=== PATIENT | male | born 1955 | race Caucasian/White ===

== ENCOUNTER 2018-10-18 10:53 | Day surgery (SDC) | payer BC, MEDICARE ==
[~2018-10-18] VITALS: Ht 185.4 cm; Wt 65.8 kg
[2018-10-18] MEDS ORDERED: CEFAZOLIN PMX 1GM/50ML 50 ML ONE (11:23)
[2018-10-18 11:32] VITALS: BP 95/59
[2018-10-18] MEDS ORDERED: SODIUM CHLORIDE 0.9% 1,000 ML IV SCH (11:34)
[2018-10-18] MEDS ORDERED: CEFAZOLIN PMX 1GM/50ML 50 ML IV ONE (12:00)
[2018-10-18] MEDS ORDERED: LIDOCAINE 1%, 20ML ONE (13:24)
[2018-10-18] MEDS ORDERED: NALOXONE 1 MG/ML, 2ML ONE (13:36)
[2018-10-18] MEDS ORDERED: MIDAZOLAM 1 MG/ML, 5ML ONE ×2 (13:36)
[2018-10-18] MEDS ORDERED: FLUMAZENIL 0.1 MG/1 ML, 5ML ONE (13:36)
[2018-10-18] MEDS ORDERED: FENTANYL PF 100 MCG/2ML ONE (13:36)
== END 2018-10-18 15:55 | disposition home or self-care (01) ==
LOC: OUT 10:53
PROVIDERS: ATTEND Specialist
DX: C34.11 Malignant neoplasm of upper lobe, right bronchus or lung (principal); F17.210 Nicotine dependence, cigarettes, uncomplicated; Z72.89 Other problems related to lifestyle; Z85.51 Personal history of malignant neoplasm of bladder; Z83.79 Family history of other diseases of the digestive system
CPT/HCPCS: 36561; 76937; 77001; 99156; 99157; C1788; J0690; J1642; J2250; J3010; J7030; J2310